=== PATIENT | female | born 1990 | race American Indian/Alaskan Native ===

== ENCOUNTER 2017-01-17 11:00 | Emergency (ER) | payer OTHER ==
[2017-01-17] MEDS ORDERED: TYLENOL PO ONE (11:38)
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
[2017-01-17 13:20] VITALS: BP 129/84
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
== END 2017-01-17 13:35 | disposition home or self-care (01) ==
LOC: ED 11:00
DX: S09.90XA Unspecified injury of head, initial encounter (principal); G44.319 Acute post-traumatic headache, not intractable; V89.2XXA Person injured in unspecified motor-vehicle accident, traffic, initial encounter; Y93.89 Activity, other specified; Y99.9 Unspecified external cause status; Y92.410 Unspecified street and highway as the place of occurrence of the external cause
CPT/HCPCS: 70450